=== PATIENT | male | born 1995 | race Hispanic/Latino ===

== ENCOUNTER 2017-06-17 02:15 | Emergency (ER) | payer BC, OTHER ==
[2017-06-17] MEDS ORDERED: ACETAMINOPHEN-CODEINE ELIXIR 5 ML UDCUP ONE (03:07)
[2017-06-17] MEDS ORDERED: IPRATROPIUM/ALBUTEROL SULFATE 3 ML SOLUTION IH ONE (03:23)
[2017-06-17] MEDS ORDERED: BENZONATATE 100 MG CAPSULE PO ONE (04:12)
== END 2017-06-17 04:25 | disposition home or self-care (01) ==
LOC: EDH 02:15
DX: J20.9 Acute bronchitis, unspecified (principal)
CPT/HCPCS: 71046; 94640